=== PATIENT | female | born 1955 | race Caucasian/White ===

== ENCOUNTER 2024-01-23 13:26 | Inpatient (IN) | payer MEDICARE, OTHER, SELFPAY ==
[2024-01-23] VITALS (10 sets, daily range): BP systolic 104–142; BP diastolic 62–113
--- NOTE | 2024-01-23 11:49 | W.PN.CARDCBS ---
Today's Communication / Plan
-
[facility] today
Impression / Plan
-
This is a summary, please see scanned H&P
PCP: Neville Zelaya MD
CDY: Jey Schneider, DO
68 yo WF h/o Hyperthyroidism, DM, Fibromyalgia, depression/Anxiety, GERD and Family history of CAD. 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
65-70%. She was scheduled for cath on 01/[address] Roach but developed chest pain and worsening dyspnea and presented to [facility] ER yesterday. Troponin neg x3 but with abn NST she is being transferred today for [facility]. She had mild hyponatremia on
admission which resolved 129->135
Impression/Plan:
#Dyspnea/Chest pain - [facility] today, admit IVU post
continue ASA, stop Imdur if PCI or no CAD
initiated on metoprolol 25mg bid, and atorvastatin 40mg
f/u Jennie 2-4 weeks at d/c
#DM - A1c 6.1%, SSI while hospitalized, Hold metformin 48hrs post cath
#Depression/Anxiety - continue Wellbutrin, fluoxetine, nortriptyline
#IBS/GERD - continue Linzess, Amitiza and omeprazole
#chronic rectus sheath pain - stable
#Hyperthyroidism
#Fibromyalgia
#Family history CAD
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
Subjective
Date of Service: January 23, 2024
3-5/10 chest tightness on arrival, reproducible, no sob
Physical Exam
Physical Exam
NAD<AOX3
S1, S2, RRR
CTAB, non labored, no wheeze
LLQ tenderness with minimal palpitation chronic bsx4
No LE edema
--- NOTE | 2024-01-23 15:34 | PTCARENOTE ---
Rec'd Pt as transfer from [facility], [facility]. Report was obtained from ambulance crew that transported Pt here. Pt on Heparin drip. Ntg drip was stopped by ambulance crew due to Pt
low BP. 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 She is A,A+O. She has some chest discomfort but it is reproducible with palpation. After Pt was oriented to the room and the ambulance crew left, Pt's chest discomfort subsided.
[2024-01-23] MEDS: NSS 1000 IV (16:15)
--- NOTE | 2024-01-23 16:43 | ITS.CL.ANGIO ---
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
Angioplasty
Procedure Report:
CARDIAC CATHETERIZATION REPORT
Date of Procedure: 01/23/2024
Referring: Kell Lu M.D.
INDICATION: Unstable angina, abnormal stress test.
PROCEDURE:
1. Left heart catheterization
2. Coronary angiography.
3. Successful IFR of the distal circumflex.
4. Successful PCI of the proximal OM1.
ACCESS:
6 Macedonian right radial artery.
CATHETERS:
1. 5 Macedonian JR4.
2. 5 Macedonian JL 3.5.
3. 6 Macedonian EBU 3.5 guiding catheter.
HEMODYNAMIC DATA
Weight (kg): 76.7
AO (s/d/x, mmHg): 115/76/94
LV (s/x mmHg): 119/14
LEFT VENTRICULOGRAPHY: Not performed.
CORONARY ANGIOGRAPHY
Dominance: Right.
Left Main: Normal size, bifurcating vessel. There is no coronary artery disease.
LAD: Normal size vessel giving rise to 1 small diagonal. There are minor luminal irregularities in the distal vessel. There is a subtotal, 95% occlusion in the middle of the diagonal, which is a 1.5 mm vessel.
Ramus: Congenitally absent.
Circumflex: Large size, nondominant vessel giving rise to 3 obtuse marginals then terminating as a left posterolateral branch. There is a 90% lesion in the proximal third of the first obtuse marginal. There is a 60% lesion in the distal
circumflex, immediately proximal to when it turns into the left posterolateral branch.
RCA: Normal size, dominant vessel. There is a 30% lesion in the proximal vessel, immediately before the takeoff of the RV marginal.
INTERVENTION(S)
1. Successful IFR of the 60% distal circumflex lesion, demonstrating nonocclusive disease (IFR = 0.99).
2. Successful PCI of the 90% proximal OM1 lesion (Xience Skypoint 2.5 x 23 RY, postdilated with a 2.5 NC balloon) with reduction in stenosis to 0%, maintaining AARON-3 flow.
Narrative:
The decision was made to perform physiologic testing. The diagnostic catheter was removed over a wire and exchanged for a(n) 6 Macedonian EBU 3.5 guiding catheter. The guiding catheter was advanced into the ascending aorta and seated in the left main
coronary artery. Additional heparin was given to obtain an ACT greater than 250 seconds. An iFR wire was zeroed outside of the body, then inserted into the guiding sheath. The wire was advanced and the transducer was normalized just outside of the
guiding catheter tip. The wire was advanced into the left posterolateral branch, beyond the 60% distal circumflex lesion. Three iFR measurements were taken. The lesion was determined to be nonocclusive (0.99).
The decision was made to proceed with percutaneous coronary intervention. A Power Turn Flex wire was advanced into the distal OM1. The 90% proximal OM1 lesion was predilated with a 2.0 x 12 semi-compliant balloon to 12 fransisca. The semi-compliant
balloon was removed and a Xience Skypoint 2.5 x 23 drug-eluting stent was advanced. The stent was deployed at 12 atmospheres. The stent balloon was removed. A 2.5 x 20 noncompliant balloon was advanced into the stent and the stent was postdilated to
14 atmospheres. Angiography was performed in orthogonal views, confirming good stent expansion and an excellent angiographic result. The coronary wire was withdrawn and the guide was disengaged from the artery. The catheter was removed over a
standard J-wire.
Closure Device: Vascular band.
Radiation (mGy): 690.22
DAP (cm2.Gy): 89.3053
Fluoroscopy time (minutes): 9.7
Sedation time (minutes): 53
CONCLUSIONS
1. Right dominant circulation with a 30% lesion in the proximal RCA, minor luminal irregularities in the distal LAD, a subtotal, 95% occlusion in the middle of the small first diagonal with AARON II flow, a nonobstructive 60% lesion in the distal
circumflex (IFR = 0.99) and a 90% lesion in the proximal third of the first obtuse marginal, status post successful PCI (Xience Skypoint 2.5 x 23 RY, postdilated with a 2.5 NC balloon) with reduction in stenosis to 0%, maintaining AARON-3 flow.
2. Top normal filling pressures (LVEDP = 14 mmHg at 76.7 kg).
RECOMMENDATIONS:
1. Expectant management after cardiac catheterization via right radial approach.
2. Limited weight bearing on the right wrist for one week.
3. Dual antiplatelet therapy with aspirin and clopidogrel for at least 12 months, followed by aspirin indefinitely.
4. Aggressive risk factor modification with secondary preventative statin.
5. Echocardiogram ordered and pending.
6. Medical management of diagonal disease as this is too small for mechanical intervention.
7. Referral to cardiac rehab.
Copy to: Jey Schneider D.O., Kell Lu M.D., Virgil Sharpe M.D.
Aashish Crawley DO, FACC, FACP
[2024-01-23] MEDS: LIPITOR 40 MG PO (18:37)
[2024-01-23] MEDS: NEURONTIN 300 MG PO ×2 (18:37→21:22)
[2024-01-23] MEDS: AMITIZA 24 MCG PO (20:28)
[2024-01-23] MEDS: LIORESAL 10 MG PO (20:36)
[2024-01-23] MEDS: HYCET 7.5/325 ORAL SOLUTION 20 ML PO (21:18)
[2024-01-23] MEDS: PAMELOR 10 MG PO (21:22)
[2024-01-23] MEDS: PEPCID 20 MG PO (21:22)
[2024-01-23 21:43] LABS: Glucose - Point of Care 82 mg/dl (70-99)
[2024-01-23] MEDS: AMBIEN 10 MG PO (22:33)
--- NOTE | 2024-01-24 03:04 | PTCARENOTE ---
Patient expressed frustration the she is 'not getting enough of her pain meds', she was crying at one point and also said she was going home to get her meds then come back in. After the Hydrocodone was given she agreed to stay. Obtained order for
Ambien that she also takes at home. Sleeping at present.
[2024-01-24 04:15] VITALS: BP 118/73
[2024-01-24 04:40] LABS: Hematocrit 33.4 % (37.0-47.0); Hemoglobin 11.2 g/dL (12.0-16.0); Mean Corp Hgb Conc. 33.5 g/dL (33.0-37.0); Mean Corpuscular Hgb 29.5 pg (27.0-31.0); Mean Corpuscular Volume 87.9 fL (81.0-99.0); Mean Platelet Volume 10.1 fL (7.4-10.4); Platelet Count 242 10^3/uL (130-400); Red Cell Dist. Width 12.5 % (11.5-14.5); White Blood Cell Count 9.4 10^3/uL (4.8-10.8)
[2024-01-24 05:08] LABS: Blood Urea Nitrogen 12 mg/dl (7-17); Calcium 9.4 mg/dl (8.4-10.2); Carbon Dioxide 23 mmol/L (22-30); Chloride 106 mmol/L (98-107); Glucose 101 mg/dl (70-99); HDL Cholesterol 47 mg/dl; LDL Cholesterol, Calculated 108 mg/dl; Potassium 4.4 mmol/L (3.5-5.1); Sodium 133 mmol/L (135-145); Total Cholesterol 197 mg/dl (50-199); Triglyceride 214 mg/dl (10-149); Very Low Density Lipoprotein 42 mg/dl (0-30); eGFR > 60.00
--- NOTE | 2024-01-24 07:06 | W.PN.CD ---
Today's Communication / Plan
-
DAPT with aspirin and clopidogrel for 12 months, followed by aspirin indefinitely.
Atorvastatin 40 mg daily
Goal LDL < 55.
Stable for outpatient follow up with [facility].
Outpatient pulmonary evaluation.
Discharge.
Impression / Plan
-
Impression/Plan: 68 y/o female with h/o Hyperthyroidism, DM, Fibromyalgia, depression/anxiety, GERD and family history of CAD with recent chest pain evaluation with an abnormal stress test (apical ischemia), transferred from [facility] after developing
recurrent chest pain.
#Dyspnea/Unstable Angina/CAD
-LHC showed 30% pRCA, non-occlusive dLCx 60% lesion (iFR = 0.99), 95% small D1 with AARON II flow (too small for intervention) and a 90% OM1 lesion s/p successful PCI (Xience Skypoint 2.5 x 23 RY, post dilated with a 2.5 NCB).
-DAPT with aspirin and clopidogrel for 12 months, followed by aspirin indefinitely.
-Aggressive secondary prevention. Start atorvastatin 40 mg daily. Goal LDL < 55.
-Referral to cardiac rehab.
-Outpatient follow up with [facility] cardiology.
-I asked her to follow up with her PCP regarding her persistent dyspnea on exertion (primary pulmonary disease?).
#DM
-Chronic, stable.
-HbA1c = 6.1%,
SSI while hospitalized, hold metformin 48hrs post cath.
#Depression/Anxiety
-Chronic, stable.
-Continue buproprion, fluoxetine, nortriptyline.
#IBS/GERD
-Chronic, stable.
-Continue Linzess, Amitiza and omeprazole.
#Chronic rectus sheath pain
-Chronic, stable.
-Home narcotics.
#Hyperthyroidism
#Fibromyalgia
#Family history CAD
#Dispo
-IVU Status.
-Full code.
-Discharge.
PCP: Neville Zelaya MD
CDY: Jey Schneider,
Subjective/Interval History:
Successful PCI of the OM1 yesterday.
She struggled with her non-cardiac pain overnight, responded to narcotics.
No further CP.
She still has some SOB, but this is at baseline and clearly not cardiac (revascularized, normal LVEDP).
DATA:
Cardiac Catheterization/PCI, 01/23/2024:
CONCLUSIONS
1. Right dominant circulation with a 30% lesion in the proximal RCA, minor luminal irregularities in the distal LAD, a subtotal, 95% occlusion in the middle of the small first diagonal with AARON II flow, a nonobstructive 60% lesion in the distal
circumflex (IFR = 0.99) and a 90% lesion in the proximal third of the first obtuse marginal, status post successful PCI (Xience Skypoint 2.5 x 23 RY, postdilated with a 2.5 NC balloon) with reduction in stenosis to 0%, maintaining AARON-3 flow.
2. Top normal filling pressures (LVEDP = 14 mmHg at 76.7 kg).
Physical Exam
Vital Signs/Labs
Vital Signs
Temp Pulse Resp BP Pulse Ox
36.7 C 80 20 118/73 93
01/24/24 06:16 01/24/24 06:00 01/24/24 06:16 01/24/24 04:15 01/24/24 06:16
01/22/24 01/23/24 01/24/24
11:59 11:59 11:59
Actual Weight 76.5 kg
01/24/24 04:22
01/24/24 04:22
Triglycerides 214 mg/dl (10-149) H 01/24/24 04:22
LDL Cholesterol, Calc 108 mg/dl 01/24/24 04:22
VLDL Cholesterol, Calc 42 mg/dl (0-30) H 01/24/24 04:22
HDL Cholesterol 47 mg/dl 01/24/24 04:22
Physical Exam
Constitutional: No acute distress and Comfortable
EENT: Anicteric and Moist mucous membranes
Cardiovascular: Rhythm & rate is regular, Pedal edema is absent, JVD pressure is normal, S1S2 is normal and Murmur/rub/gallop absent
Respiratory: Respiratory effort normal, Lungs clear to auscul., Wheeze Absent, Crackles Absent and Rhonchi Absent
GI: Soft, Distention absent, Flat, Non tender and Normal bowel sounds
Neuro/Psych: AO x 3
Other: Cath Site (Right radial access site is C/D/I.)
Data Reviewed
-
Date of Service: January 24, 2024
Medical Decision Making: Reviewed Test Results, Independent Historian Assessment, Test Interpretation and Review of Case with other Provider
EKG: Tracing Personally Visualized and interpreted and Report Reviewed by me
X-Ray/CT/US/MRI/NUC/PET: Image Personally Visualized and interpreted and Report Reviewed by me
Medical Tests (PFT, Pathology etc): Image Personally Visualized and interpreted and Report Reviewed by me
Labs: Labs Reviewed by me
Old Records: Reviewed
[2024-01-24 07:32] VITALS: BP 117/86
[2024-01-24 07:35] LABS: Glucose - Point of Care 108 mg/dl (70-99)
[2024-01-24] MEDS: LOW STRENGTH ASPIRIN 81 MG PO (07:56)
[2024-01-24] MEDS: PROZAC 10 MG PO (07:56)
[2024-01-24] MEDS: FLOMAX 0.400000000000000022 MG PO (07:56)
[2024-01-24] MEDS: WELLBUTRIN XL (24 hour extended release) 300 MG PO (07:57)
[2024-01-24] MEDS: PROTONIX 40 MG PO (07:57)
[2024-01-24] MEDS: NEURONTIN 300 MG PO (07:57)
[2024-01-24] MEDS: AMITIZA 24 MCG PO (07:57)
[2024-01-24] MEDS: PLAVIX 75 MG PO (07:57)
[2024-01-24] MEDS: HYCET 7.5/325 ORAL SOLUTION 20 ML PO (07:58)
[2024-01-24] MEDS: TOPROL XL 25 MG PO (07:58)
[2024-01-24] MEDS: LIORESAL 10 MG PO (08:05)
[2024-01-24 08:10] LABS: ACT-LR - POC > 397 Seconds (116-155)
[2024-01-24 08:59] LABS: Glycohemoglobin (HgbA1c) 6.5 % (4.0-5.6)
--- NOTE | 2024-01-24 10:29 | CM ---
Chart reviewed. Patient is independent of ADLS, lives alone in a 2 [address], 2 [address], 0 DME but has a chair lift in the home. Patient is not current with [facility], but is interested. Referral sent to [facility]. Plan is for the patient to return home with
[facility]. Provided patient with an Advance Directive Form.
[2024-01-24 12:30] VITALS: BP 116/74
--- NOTE | 2024-01-24 13:14 | W.DS.TRANS ---
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
-
Discharge Instructions:
Discharge Diagnosis/Procedures Angioplasty with stent to obtuse marginal artery
Diet Low Cholesterol,Diabetic, Carb Controlled
Driving Restrictions No driving for 24 hours
Other Services Cardiac Rehab
Instructions:
Stand-Alone Forms: DC Instructions- Cath/EP Lab
Changes to Home Medications: Yes
Discharge Medications:
DC Medications w/original date entered in [facility]
Prozac: 15 mg PO DAILY Mental Health/Anxiety 06/21/10
Wellbutrin: 300 mg PO DAILY Mental Health/Anxiety 06/21/10
famotidine 40 mg tablet 20 mg PO PRN PRN GI problems 06/21/10
loratadine 10 mg tablet 10 mg PO DAILY Allergies 06/21/10
Clonidine 0.2 Ketamine 10 Gabapentin 6 Gel 1 applic TOP .QIDPRN PRN ANKLE PAIN 11/11/11
Lidocaine 5% Compound Gel 1 applic TOP QID PRN L abdominal pain 11/11/11
lidocaine 5 % topical patch 1 patch S PRN PRN ANKLE PAIN 11/11/11
tamsulosin 0.4 mg capsule 0.4 mg PO DAILY Urinary Issue 11/11/11
baclofen 10 mg tablet 1 tab PO BID Muscle Spasms 01/25/14
aspirin 81 mg tablet 81 mg PO DAILY Blood Clot Prevention/Tx 01/23/24
cholecalciferol (vitamin D3) 50 mcg (2,000 unit) tablet (Vitamin D3) 100 mcg PO DAILY Supplement 01/23/24
cyanocobalamin-liver extract tablet 1,000 tab PO DAILY Supplement 01/23/24
dicyclomine 10 mg capsule 10 mg PO QID PRN cramping 01/23/24
famotidine 20 mg tablet (Pepcid) 20 mg PO HS Gastrointestinal Issue 01/23/24
fluticasone propionate 50 mcg/actuation nasal spray,suspension 2 spray intranasal DAILY PRN allergies 01/23/24
gabapentin 300 mg capsule 300 mg PO QID Neurological Condition 01/23/24
hydrocodone 10 mg-acetaminophen 325 mg tablet 2 tab PO Q6H PRN abdominal pain 01/23/24
isosorbide mononitrate 30 mg tablet,extended release 24 hr 30 mg PO DAILY Heart Disease/Condition 01/23/24
lorazepam 0.5 mg tablet 0.5 mg PO DAILY PRN anxiety 01/23/24
lubiprostone 24 mcg capsule (Amitiza) 24 mcg PO BID Gastrointestinal Issue 01/23/24
metformin 500 mg 24 hr tablet,extended release (gastric retention) 500 mg PO 1800 Diabetes 01/23/24
nitroglycerin 0.4 mg sublingual tablet 0.4 mg sublingual Q5M PRN chest pain 01/23/24
nortriptyline 10 mg capsule 10 mg PO HS Mental Health/Anxiety 01/23/24
ondansetron HCl 4 mg tablet 4 mg PO BID Gastrointestinal Issue 01/23/24
senna-docusate sodium tablet 2 tab PO DAILY Constipation 01/23/24
zolpidem 10 mg tablet 10 mg PO HS 01/23/24
atorvastatin 40 mg tablet 40 mg PO QPM #90 tabs 01/24/24
clopidogrel 75 mg tablet 75 mg PO DAILY #90 tabs 01/24/24
metoprolol succinate 25 mg tablet,extended release 24 hr 25 mg PO DAILY #90 tabs 01/24/24
pantoprazole 40 mg tablet,delayed release 40 mg PO DAILY #90 tabs 01/24/24
Home Medication Changes
stopped meloxicam, omeprazole, new to atrovastatin, metoprolol, plavix, and protonix
Pending Results: No
== END 2024-01-24 12:20 | disposition home or self-care (01) | DRG 287 ==
LOC: IVU 13:26
PROVIDERS: Internal Medicine Cardiovascular Disease; Nurse Practitioner Adult Health; ADMITTING PHYSICIAN Internal Medicine Cardiovascular Disease
PROC: B2151ZZ Fluoroscopy of Left Heart using Low Osmolar Contrast (ICD-10-PCS; 2024-01-23)
PROC: B2111ZZ Fluoroscopy of Multiple Coronary Arteries using Low Osmolar Contrast (ICD-10-PCS; 2024-01-23)
PROC: 4A033BC Measurement of Arterial Pressure, Coronary, Percutaneous Approach (ICD-10-PCS; 2024-01-23)
PROC: 4A023N7 Measurement of Cardiac Sampling and Pressure, Left Heart, Percutaneous Approach (ICD-10-PCS; 2024-01-23)
DX: I25.110 Atherosclerotic heart disease of native coronary artery with unstable angina pectoris (principal); E11.9 Type 2 diabetes mellitus without complications; F41.9 Anxiety disorder, unspecified; F32.A Depression, unspecified; K58.9 Irritable bowel syndrome, unspecified; K21.9 Gastro-esophageal reflux disease without esophagitis; E05.90 Thyrotoxicosis, unspecified without thyrotoxic crisis or storm; M79.7 Fibromyalgia
CPT/HCPCS: 80048; 80061; 82962; 83036; 85027; 85347; 93005; 93458; 93571; C1725; C1769; C1874; C9600; Q9967

== ENCOUNTER 2024-01-27 17:18 | Emergency (ER) | payer MEDICARE, OTHER, SELFPAY ==
[2024-01-27 17:20] VITALS: BP 92/63; BMI 28.8
[2024-01-27 18:00] VITALS: BP 95/54
[2024-01-27 18:12] LABS: % Basophils 0.7 % (0-2); % Eosinophils 1.4 % (0-6); % Immature Granulocytes 0.4 % (0-0.5); % Lymphocytes 23.2 % (20.5-51.1); % Monocytes 10.6 % (1.7-9.3); % Neutrophils 63.7 % (42.2-75.2); Absolute Basophils 0.1 10^3/uL (0-0.2); Absolute Eosinophils 0.2 10^3/uL (0-0.7); Absolute Immature Granulocytes 0.1 10^3/uL (0-0.05); Absolute Lymphocytes 2.9 10^3/uL (1.2-3.4); Absolute Monocytes 1.3 10^3/uL (0.1-0.6); Hemoglobin 10.5 g/dL (12.0-16.0); Mean Corp Hgb Conc. 33.9 g/dL (33.0-37.0); Mean Corpuscular Hgb 29.2 pg (27.0-31.0); Mean Corpuscular Volume 86.1 fL (81.0-99.0); Mean Platelet Volume 10.7 fL (7.4-10.4); Nucleated Red Blood Cells % 0 %; Platelet Count 266 10^3/uL (130-400); Red Cell Dist. Width 12.2 % (11.5-14.5); White Blood Cell Count 12.5 10^3/uL (4.8-10.8)
[2024-01-27 18:24] VITALS: BP 108/62
[2024-01-27 18:35] LABS: ALT (SGPT) 11 U/L (0-35); AST (SGOT) 19 U/L (14-36); Albumin 3.7 g/dl (3.5-5.0); Alkaline Phosphatase 105 U/L (38-126); Blood Urea Nitrogen 13 mg/dl (7-17); Calcium 9.2 mg/dl (8.4-10.2); Carbon Dioxide 22 mmol/L (22-30); Chloride 102 mmol/L (98-107); Estimated Creatinine Clearance 64 ml/min; Glucose 104 mg/dl (70-99); Potassium 3.9 mmol/L (3.5-5.1); Sodium 131 mmol/L (135-145); Total Bilirubin 0.5 mg/dl (0.2-1.3); Total Protein 6.2 g/dl (6.3-8.2); eGFR > 60.00
[2024-01-27 18:41] LABS: Troponin I 0.018 ng/ml
[2024-01-27 19:38] VITALS: BP 108/65
--- NOTE | 2024-01-27 19:45 | ED.GENMED ---
History of Present Illness
General
Chief Complaint: Chest Pain
Source: patient
Exam Limitations: none
Time Seen by Provider: 01/27/24 18:19
Travel History
Have you had any contact with someone who has COVID-19?: No
Do you have any symptoms of coronavirus? Fever > 100 degrees, chills, cough, shortness of breath, sore throat, loss of taste or smell, muscle aches, or headache?: No
History of Present Illness
History of Present Illness:
68-year-old female with recurring indigestion type burning chest pain over the last 36 hours or so. Patient is not a great historian. Nonexertional. Has a history of GERD and normally right upper neck. She feels this is more in her lower midline
chest. Has been there most of the time but does wax and wane some. Ongoing shortness of breath but this has been since her stent. Patient states she was asymptomatic upon discharge with the stent
Past History
Past History
ED Past Medical History: Other (Chronic abdominal pain., Spastic esophagus, IBS, Reflex sympathetic dystrophy, Fibromyalgia, Chronic back pain,)
ED Past Surgical History: None
Social History
Tobacco: Non-smoker
Alcohol: None
Drug: None
Personal: Single
Living: alone
Employment: Employed
Family History
Family History: Other (Noncontributory)
Review of Systems
Review of Systems
All Other Systems: Not applicable
Constitutional: Denies fever
Respiratory: Denies cough
Phy Exam
Physical Exam
Physical Exam:
GENERAL: Alert and oriented in no apparent distress
EYE: Orbits normal.
NECK: Supple, no significant adenopathy.
ENT: Pharynx without erythema
CARDIAC: Regular rate and rhythm without any obvious murmurs.
LUNGS: Clear breath sounds,normal
ABDOMEN: Soft, without focal tenderness or distention
NEUROLOGICAL: Alert and oriented , grossly non-focal
SKIN: Warm and dry, no rash or lesion, no discoloration, skin intact.
MUSCULOSKELETAL: No edema,no deformity.Good color
PSYCH: Normal and appropriate interaction.
Scores
Heart Score for Chest Pain Patients
STEMI patient?: No
History: Slightly or Non-Suspicious
ECG: Normal
Age: >/= 65 years
Risk Factors: >/= 3 Risk Factors or History of CAD
Troponin: >1 - <3 x Normal Limit
Heart Score for Chest Pain Patients: 5
Heart Score Risk: 20.3% MACE over next 6 weeks
Course
Orders/Labs/Results
Orders:
Orders
01/27/24 17:24
EKG [Electrocardiogram (*1)] Urgent
Reason for Study: Tachycardia
EKG- Treatment ONCE
01/27/24 17:35
Complete Blood Count/With Diff Urgent
Comprehensive Metabolic Panel Urgent
Troponin I Urgent
01/27/24 20:49
EKG [Electrocardiogram (*1)] Urgent
Reason for Study: Chest Pain
EKG- Treatment ONCE
01/27/24 21:14
Lipase Urgent
Troponin I Urgent
01/27/24 22:04
CXR2 [CR Chest - 2 Views ] Urgent
Comment:
Reason For Exam: sob
Abnormal Lab Results
01/27/24
17:35
WBC 12.5 H 10^3/uL
(4.8-10.8)
RBC 3.60 L 10^6/uL
(4.20-5.40)
Hgb 10.5 L g/dL
(12.0-16.0)
Hct 31.0 L %
(37.0-47.0)
MPV 10.7 H fL
(7.4-10.4)
Abs Immat Gran (auto) 0.1 H 10^3/uL
(0-0.05)
Absolute Neuts (auto) 8.0 H 10^3/uL
(1.4-6.5)
Absolute Monos (auto) 1.3 H 10^3/uL
(0.1-0.6)
Monocytes % 10.6 H %
(1.7-9.3)
Sodium 131 L mmol/L
(135-145)
Glucose 104 H mg/dl
(70-99)
Total Protein 6.2 L g/dl
(6.3-8.2)
01/27/24 17:35
01/27/24 17:35
Vital Signs
Initial and Last Documented VS:
Initial Vital Signs
Temp Pulse Resp BP Pulse Ox
98.6 F 87 22 92/63 95
01/27/24 17:20 01/27/24 17:20 01/27/24 17:20 01/27/24 17:20 01/27/24 17:20
Last Documented Vital Signs
Temp Pulse Resp BP Pulse Ox
98.6 F 76 15 102/71 95
01/27/24 17:20 01/27/24 22:00 01/27/24 22:00 01/27/24 21:00 01/27/24 22:00
MDM/Problems Addressed
Differential Diagnosis Includes:
Patient with recurring burning indigestion-like chest pain. Much more suspicious of reflux or GERD. Patient has had very prolonged symptoms for almost 2 days with a negative and stable troponin x 2 and stable EKG x 2. Discussed with cardiology.
Seligman if troponins were negative x 2 with prolonged symptoms she could be discharged to follow-up. Patient did note the symptoms were clearly worse after eating. Will add Carafate to follow-up
*Pulse Oximetry
Patient hypoxic: no
*Critical Care Note
Total Time (30-74mins, 75-104mins- exclusive of procedures): Not Applicable
Data Reviewed
Review of Other/Old Records Reveals: Labs, Records and Discharge Summary
ED Attending Note
-
Portions of this chart may have been created with voice recognition software.� Occasional wrong word or��sound alike� substitutions may have occurred due to the inherent limitations of voice recognition software.
Discharge Plan
Departure
Patient Disposition: Home (Routine Discharge)
Date of Disposition: 01/27/24
Time of Disposition: 19:47
Patient with high blood pressure during this ER visit?: No
Discharge Problem:
Recurring chest pain/reflux, Recent cardiac stenting
Instructions: Chest Pain CBC Follow Up, BLOOD PRESSURE
Prescriptions:
New
sucralfate [Carafate] 100 mg/mL suspension
1 g PO TID 28 Days Qty: 840 0RF
No Action
atorvastatin 40 mg Tablet
40 mg PO HS
famotidine 10 mg Tablet
20 mg PO HS
ondansetron HCl 4 mg Tablet
4 mg PO BID
isosorbide mononitrate 30 mg Tablet Extended Release 24 Hr
30 mg PO DAILY
fluoxetine 10 mg Tablet
15 mg PO DAILY
sennosides-docusate sodium [Senna Plus] 8.6-50 mg Tablet
1 tab-cap PO DAILYPRN PRN (Reason: constipation)
cyanocobalamin (vitamin B-12) 1,000 mcg Tablet
1,000 mcg PO DAILY
clopidogrel 75 mg Tablet
75 mg PO DAILY
aspirin 81 mg Tablet,Delayed Release (Dr/Ec)
81 mg PO DAILY
tamsulosin 0.4 mg Capsule
0.4 mg PO DAILY
baclofen 10 mg Tablet
10 mg PO BID
pantoprazole 40 mg Tablet,Delayed Release (Dr/Ec)
40 mg PO DAILY
nortriptyline 10 mg Capsule
30 mg PO HS
esomeprazole magnesium 40 mg Capsule,Delayed Release(Dr/Ec)
40 mg PO BID
docusate sodium [Stool Softener] 100 mg Capsule
100 - 300 mg PO HS
gabapentin 300 mg Capsule
300 mg PO TID
metoprolol succinate 25 mg Tablet Extended Release 24 Hr
25 mg PO DAILY
zolpidem 10 mg Tablet
10 mg PO HS
fluticasone propionate 50 mcg/actuation Shell,Suspension
2 spray INTRANASAL DAILY PRN (Reason: allergies)
metformin 500 mg Tablet Extended Release 24 Hr
500 mg PO QPM
loratadine [Claritin] 10 mg Tablet
10 mg PO DAILY
cyclobenzaprine 5 mg Tablet
5 mg PO HS
bupropion HCl 300 mg Tablet Extended Release 24 Hr
300 mg PO DAILY
hydrocodone-acetaminophen 10-300 mg Tablet
2 tab PO .SEE BELOW
Patient Comments:
01/27/2024, prescribed for pt. to take 1-2 tablets Q8HPRN; however, pt. misred label and has been taking 2 tablets Q6H.
lubiprostone 24 mcg Capsule
24 mcg PO BID
cholecalciferol (vitamin D3) 25 mcg (1,000 unit) Tablet
25 mcg PO DAILY
Linzess 145 mcg Capsule
145 mcg PO DAILY
Referrals:
Neville Zelaya MD [Family Provider] -
Interventions
Interventions:
*Risk Screen - Suicide Last Done: 01/27/24 17:20
*General Assessment Last Done: 01/27/24 17:20
*Neglect/Abuse Screening Last Done: 01/27/24 17:20
ED- Fall Risk Assessment Last Done: 01/27/24 17:20
*ED COVID-19 Vaccine History Last Done: 01/27/24 17:20
*Nursing Disposition Last Done: 01/27/24 22:48
ED- Cardiac Assessment Last Done: 01/27/24 17:20
Discharge Date and Time
Discharge Date/Time: 01/27/24 22:49
Print Language: BERMUDIAN
[2024-01-27 20:00] VITALS: BP 108/59
[2024-01-27 21:00] VITALS: BP 102/71
[2024-01-27 21:42] LABS: Lipase 36 U/L (23-300)
== END 2024-01-27 22:49 | disposition home or self-care (01) ==
LOC: EMR 17:18
PROVIDERS: EMERGENCY PHYSICIAN Emergency Medicine; FAMILY PHYSICIAN Family Medicine
DX: R07.89 Other chest pain (principal); K21.9 Gastro-esophageal reflux disease without esophagitis; Z95.5 Presence of coronary angioplasty implant and graft
CPT/HCPCS: 99285; 71046; 80053; 83690; 84484; 85025; 93005

== ENCOUNTER → 2024-11-02 08:35 | Day surgery (SDC) | payer MEDICARE, OTHER, SELFPAY ==
[2024-11-02] VITALS (16 sets, daily range): BP systolic 83–115; BP diastolic 54–74; BMI 27.4
[2024-11-02 11:02] LABS: Glucose - Point of Care 133 mg/dl (70-99)
--- NOTE | 2024-11-02 12:24 | ITS.CL.CATH ---
Soc Analyst - Catheterization
Cardiac Catheterization
Procedure Report:
CARDIAC CATHETERIZATION REPORT
Date of Procedure: 11/02/2024
Referring: Jey Schneider D.O.
INDICATION: Known coronary artery disease, persistent dyspnea on exertion.
PROCEDURE:
1. Left heart catheterization.
2. Coronary angiography.
A total of 37 minutes of procedural/moderate sedation was utilized. An independent medical appointment clerk was present to assist with and help manage the patient's level of consciousness and physiologic status.
ACCESS:
1. 6 [place] right common femoral artery using a modified Seldinger technique with a micropuncture kit under ultrasound guidance. Ultrasound image obtained.
CATHETERS:
1. 5 [place] JR4.
2. 5 [place]bek JL 4.
HEMODYNAMIC DATA
Weight (kg): 76.7
AO (s/d/x, mmHg): 110/69/86
LV (s/x mmHg): 110/15
LEFT VENTRICULOGRAPHY: Not performed.
CORONARY ANGIOGRAPHY
Dominance: Right.
Left Main: Large size, bifurcating vessel. There is no coronary artery disease.
LAD: Large size vessel giving rise to 1 significant diagonal. There is a 40% lesion in the apical vessel.
Ramus: Congenitally absent.
Circumflex: Large size, nondominant vessel giving rise to 3 obtuse marginals before terminating as a left posterolateral branch. A patent stent is present in the proximal margin of OM1. The second obtuse marginal arises off of the superior
aspect of the circumflex with a 160 degree bend immediately after its origin. There is a 30% lesion in the mid vessel. There is a 50% lesion in the distal circumflex as it turns into the left posterolateral branch.
RCA: Normal size, dominant vessel. There is a 30% lesion in the proximal RCA.
INTERVENTION(S)
None.
Closure Device: 6 U[place]bek Angio-Seal.
Radiation (mGy): 392.22
DAP (cm2.Gy): 27.3078
Fluoroscopy time (minutes): 1.7
CONCLUSIONS
1. Right dominant circulation with a 30% lesion in the proximal RCA, a 30% lesion in the mid section of a tortuous OM 2, a 40% lesion in the apical LAD and a 50% lesion in the distal circumflex as it turns into the left posterolateral branch,
unchanged from prior cardiac catheterization/PCI, 01/23/2024. IFR of the 50% distal circumflex lesion was 0.99 at that time.
2. Top normal filling pressures (LVEDP = 15 mmHg at 76.7 kg).
RECOMMENDATIONS:
1. Expectant management after cardiac catheterization via right common femoral approach.
2. Limited weight bearing for one week.
3. Continue aggressive secondary prevention with high-dose, high potency statin. Goal LDL <55.
4. Continue dual antiplatelet therapy with aspirin and clopidogrel for at least 12 months, followed by aspirin indefinitely.
5. No obvious cardiac source of dyspnea.
Copy to: Jey Schneider D.O., Virgil Sharpe M.D.
Aashish Crawley, DO, FACC, FACP
== END | disposition home or self-care (01) ==
LOC: CATH 08:35
PROVIDERS: ATTENDING PHYSICIAN Internal Medicine Cardiovascular Disease; FAMILY PHYSICIAN Family Medicine; OTHER PHYSICIAN Internal Medicine Cardiovascular Disease
DX: I25.10 Atherosclerotic heart disease of native coronary artery without angina pectoris (principal); R06.09 Other forms of dyspnea; Z95.5 Presence of coronary angioplasty implant and graft; Z79.02 Long term (current) use of antithrombotics/antiplatelets; Z79.82 Long term (current) use of aspirin; Z79.899 Other long term (current) drug therapy; Z79.84 Long term (current) use of oral hypoglycemic drugs
CPT/HCPCS: 82962; 93458; 99152; 99153; C1760; C1894; Q9967